=== PATIENT | female | born 1945 ===

== ENCOUNTER 2021-12-31 15:13 | Emergency (ER) | payer MEDICARE, SELFPAY ==
[2021-12-31 15:23] VITALS: BP 133/118; PULSE 92; TEMP 36.2; O2SAT 95
[2021-12-31 15:51] VITALS: RESP 18
--- NOTE | 2021-12-31 16:00 | DI.CT_ITS ---
Exam(s) CT HEAD WO EXAM: CT HEAD WO CLINICAL HISTORY: AMS, confussion, recent fall. TECHNIQUE: Imaging Protocol: Axial computed tomography images with coronal and sagittal reformatted images were created and reviewed COMPARISON: CR,XR XR CHEST 1V IN DI DEPT from 12/31/2021 FINDINGS: There are no skull fractures nor fluid in the visualized paranasal sinuses. There is no evidence of intracranial hemorrhage, mass effect, or shift of midline structures. There are no extra-axial fluid collections. The ventricles are not enlarged or shifted and there is no blo od within the ventricular system nor within the basal cisterns. There is a moderate amount of bilateral periventricular hypodensity consistent chronic small vessel d isease. Also involves the anterior limb of the right internal capsule. IMPRESSION: White matter changes consistent with chronic small vessel disease. If clinically indicated MRI with diffusion imaging can be performed to determine if there is an acute ischemic event. RADIATION DOSE DELIVERED: 656.6mGy.cm Total DLP DATA REPOSITORY: All CT scans at this facility are submitted to the National Radiology Data Registry (NRDR) Dose Index Registry (DIR) with the [employer] ([employer]). RADIATION OPTIMIZATION: All CT scans at this facility use at least one of these dose optimization te chniques: automated exposure control; mA and/or kV adjustment per patient size (includes targeted exa ms where dose is matched to clinical indication); or iterative reconstruction.
--- NOTE | 2021-12-31 16:00 | RT.EKG_ITS ---
APPROVED REPORT Exam: Resting ECG Reason for Exam: [facility] Patient Location: E HR:64 bpm ECG Measurements Heart Rate 64 AXIS FL 190 P 87 QRSd 96 QRS 36 QT 407 T 58 QTc 420 Conclusion Sinus rhythm...normal P axis, V-rate 60- 99 Probable left atrial enlargement...P >50mS, <-0.10mV V1 sinus rhythm, normal axis, normal intervals, non ischemic
--- NOTE | 2021-12-31 16:13 | DI.RAD_ITS ---
Exam(s) XR CHEST 1V IN DI DEPT EXAM: XR CHEST 1V IN DI DEPT CLINICAL HISTORY: AMS. TECHNIQUE: 2D digital imaging was performed. COMPARISON: No exams were available for comparison FINDINGS: Single AP portable view. Heart size is upper normal. The mediastinum is not widened. Bilateral hyperinflation noted. However, there are no infiltrates nor pleural effusions. No pulmona ry edema. There is a fracture of the posterolateral aspect of the right 7th rib noted, age indeterminate. IMPRESSION: No acute pulmonary findings on this single AP portable view of the chest.Hyperinflation. Right 7th rib fracture, age indeterminate. DATA REPOSITORY: RADIATION DOSE DELIVERED: All CT scans at this facility use at least one of these dose optimization techniques: automated exposure control; mA and/or kV adjustment per patient size (includes targeted e xams where dose is matched to clinical indication); or iterative reconstruction.
--- NOTE | 2021-12-31 16:23 | ED.GENADUL_ITS ---
Discharge Plan Disposition Patient Disposition: HOME Condition: Stable Discharge Details Chief Complaint: AMS/LOC Clinical Impression: Altered mental status Primary Care Provider: None,None ED Provider: Olegario Chaudhary Home Meds and New Rx's Prescriptions: No Action lorazepam 0.5 mg Tablet 0.5 mg PO QHS Discharge Instructions Instructions: Dementia (ED) Additional Instructions: Please return to the emergency department for any worsening confusion, or if you are unable to coordinate safe outpatient care/supervision. Medical Decision Making 76-year-old female denies past medical history brought in by from a state police for confusion, visiting for her son's graduation from local [employer], per son who gave collateral information to nurse over the phone he left from [employer] while he was giving a presentation before his graduation tomorrow, then he was able to find her, patient was found sitting in a car in [place], confused regarding situation. Patient denies headache nausea vomiting chest pain shortness of breath. Does endorse some shakiness in her hands for some time unclear duration, also endorses not taking her lorazepam over the past 2 weeks given misplacement of her medications, lives alone in [place], is alert to self and time, believes she is in [place] however she is also visiting from out of state this could be a reasonable misunderstanding however patient is globally confused regarding her trip down here to [place] as well as the circumstances leading to her coming to the emergency department today specifically what she was doing driving in [place] and how she got here, she is able to answer my questions regarding her life her past job and other details with apparent accuracy and appropriateness however she does have slightly strange affect and is confused regarding large details about today, endorses a fall within the last 1 to 2 weeks of unclear etiology, denies abuse at home, no external signs of trauma, she has full strength normal cranial nerves no ataxia, noted to be hypertensive diastolic which she says is abnormal for her. Consider progressive dementia versus intracranial hemorrhage versus normal pressure hydrocephalus versus benzodiazepine withdrawal versus metabolic derangement versus dehydration versus underlying progressive psychiatric condition versus unlikely infectious process however must consider UTI versus less likely intoxication versus atypical seizure disorder versus parkinsonian syndrome also also consider heat related illness given she was found confused in a car on a hot day however she has a normal temperature. Will assess labs, urine, CT head, chest x-ray, EKG, tox, pending results and reassessment will attempt to contact son for further collateral information and care plan consider admission for rehabilitation placement/neurology versus care plan with discharge home into custody of son this will depend on patient's mental status 19: 54 patient resting comfortably no acute distress labs and imaging largely unremarkable. Patient's mental status remains similar to presentation. Friend is at the bedside to give collateral information. Has noted a gradual decline in her memory over several weeks to months. History physical and results consistent with likely dementia. Counseled family at length regarding the need for a plan for further evaluation and her safety. Patient will be staying with her son for the coming days, son and daughter will coordinate care and neurology follow-up when patient returns to [place] she has an appointment for when she returns. Given strict return precautions for any worsening in her clinical status. HPI General Date/Time Provider Initiated Documentation: 12/31/21 15:17 . HPI Narrative: 76-year-old female denies past medical history brought in by [facility] police after being found confused in a car. Patient endorses is that she is down here visiting from [place] for her son's graduation but is unsure regarding the details of how she got down here or how she was brought to the emergency department. She states she lives alone feels comfortable at home. Is supposed to take lorazepam in the evenings to help with sleep however she missed the last 2 weeks of her medication as she has misplaced it at home. Does endorse having a change in her memory for some time and has been feeling a little shaky. Denies drug or alcohol abuse. Suicidal or homicidal thoughts, denies hallucinations. Does endorse a recent fall down several stairs at a friend's house however she is unclear how she fell or whether she passed out. 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 Related Data Home Medications Medication Instructions Recorded Confirmed lorazepam 0.5 mg tablet 0.5 mg PO QHS 12/31/21 Allergies Allergy/AdvReac Type Severity Reaction Status Date / Time No Known Allergies Allergy Unverified 12/31/21 15:29 General Stated Complaint: AMS/LOC GHAZAL: 3 Review of Systems Narrative: Review of Systems Constitutional: Confusion Eyes: negative ENT: negative Cardiovascular: negative Respiratory: negative Gastrointestinal: negative : negative Musculoskeletal: negative Skin: negative Neurologic: Confusion, shakiness, forgetfulness Psych: negative PFSH All Active Problems (Updated 12/31/21 @ 19:56 by Olegario Chaudhary MD) Altered mental status (Acute) Social History Smoking/Tobacco Use Status: Never Smoking risk assessment performed?: Yes Alcohol Intake: former Drug use: Never Substance use type: does not use Exam Narrative Exam Narrative: Physical Examination General: alert, awake, cooperative HEENT: normocephalic, atraumatic; PERRL, EOM intact, conjunctiva normal; no nasal discharge; moist mucous membranes, oral and pharyngeal mucosa normal, tolerating secretions Neck: supple, trachea midline; full ROM Chest: normal to inspection Respiratory: normal respiratory effort, speaking in full sentences, clear to auscultation, no wheezing, rales or rhonchi Cardiac: regular rate, regular rhythm, S1S2 intact, no murmurs rubs or gallops GI: abdomen soft, non-tender, non-distended; no palpable mass or hepatosplenomegaly Skin: no lesions, rashes or trauma appreciated Neuro: Alert and oriented to self, time, believes she has not [place], cranial nerves II through XII intact, 5/5 strength upper and lower extremities, no ataxia Extremities: No signs of trauma Psych: Slightly odd affect, tangential at times it redirectable; denies SI denies HI denies hallucinations Course Vital Signs Vital signs: Vital Signs Temperature 36.2 C L 12/31/21 15:23 Pulse 92 H 12/31/21 15:23 Blood Pressure 133/118 H 12/31/21 15:23 Pulse Oximetry 95 12/31/21 15:23 Temperature 36.2 C L 12/31/21 15:23 Temperature Source Temporal Artery Scan 12/31/21 15:23 Pulse 92 H 12/31/21 15:23 Respiratory Rate 18 12/31/21 15:51 Respiratory Effort Non-Labored 12/31/21 15:51 Respiratory Depth Normal 12/31/21 15:51 Respiratory Pattern Normal 12/31/21 15:51 Blood Pressure 133/118 H 12/31/21 15:23 Blood Pressure Position Sitting 12/31/21 15:23 Pulse Oximetry 95 12/31/21 15:23 Oxygen Delivery Method Room Air 12/31/21 15:23 Oxygen Flow Rate 0 12/31/21 15:23
[2021-12-31] MEDS: Normal Saline 1,000 ML 1000 ML IV (16:45)
[2021-12-31 16:52] LABS: Abs Immature Grans 0.02 10^3/uL (0.0-0.06); Absolute Basophil Count 0.03 10^3/uL (0.0-0.2); Absolute Eosinophil Count 0.04 10^3/uL (0.0-0.7); Absolute Lymphocyte Count 1.06 10^3/uL (1.2-3.4); Absolute Monocyte Count 0.62 10^3/uL (0.1-0.8); Absolute Neutrophil Count 7.61 10^3/uL (1.2-6.7); Basophils % 0.3; Eosinophils % 0.4; HCT 38.6 % (36.0-46.0); HGB 12.8 g/dL (11.2-15.7); Immature Grans % 0.2; Lymphocytes % 11.3; MCH 31.3 pg (27.0-33.0); MCHC 33.2 % (32.0-36.0); MCV 94 fL (80-95); MPV 9.1 fL (8.0-11.0); Monocytes % 6.6; Neutrophils % 81.2; Platelet Count 241 10^3/uL (130-400); RBC 4.09 10^6/uL (3.93-5.22); RDW-SD 45.4 fL; WBC 9.38 10^3/uL (4.4-10.8)
[2021-12-31 17:09] LABS: ALT 40 U/L (14-59); AST 35 U/L (15-37); Albumin 4.2 g/dL (3.4-5.0); Alkaline Phosphatase 64 U/L (46-116); Anion Gap 11.6 mmol/L (3-11); BUN 20 mg/dL (7-18); Bilirubin, Total 1.2 mg/dL (0.2-1.0); CO2 25.4 mmol/L (21.0-32.0); CREATININE 0.7 mg/dL (0.55-1.02); Chloride 104 mmol/L (98-107); Glucose 100 mg/dL (74-106); Potassium 3.6 mmol/L (3.5-5.1); Sodium 141 mmol/L (136-145); Total Protein 7.5 g/dL (6.4-8.2); Troponin I < 50 ng/L (<or=60)
[2021-12-31 17:10] LABS: Acetaminophen < 2 ug/mL (10-30)
[2021-12-31 17:14] LABS: Salicylate < 2.8 mg/dL (<2.8)
[2021-12-31 17:17] LABS: Magnesium 2.3 mg/dL (1.8-2.4); TSH (W/Ref FT4) 0.41 uIU/mL (0.36-3.74)
[2021-12-31 17:18] LABS: ETHANOL BLOOD < 3.0 mg/dL (<10)
[2021-12-31 17:34] VITALS: BP 109/55
--- NOTE | 2021-12-31 17:41 | DI.VRAD_ITS ---
PROCEDURE INFORMATION: Exam: CT Head Without Contrast Exam date and time: 12/31/2021 5:13 PM Age: 76 years old Clinical indication: Other: AMS, confusion recent fall TECHNIQUE: Imaging protocol: Computed tomography of the head without contrast. Other technique: STROKE PROTOCOL was implemented. COMPARISON: No relevant prior studies available. FINDINGS: Brain: No hemorrhage. No acute large territorial infarct. No mass effect. Cerebral ventricles: No ventriculomegaly. Paranasal sinuses: Visualized sinuses are unremarkable. No fluid levels. Mastoid air cells: Visualized mastoid air cells are well aerated. Bones/joints: No calvarial fracture. Soft tissues: Unremarkable. IMPRESSION: No acute intracranial abnormality. ASSESSMENT: ASPECTS ([place] Stroke Program Early CT Score) is 10. Dictated and Authenticated by: Anna Elizondo MD. Ordering:DYLAN Melvin MD
--- NOTE | 2021-12-31 17:45 | DI.VRAD_ITS ---
PROCEDURE INFORMATION: Exam: XR Chest Exam date and time: 12/31/2021 5:21 PM Age: 76 years old Clinical indication: Other: AMS TECHNIQUE: Imaging protocol: XR of the chest. Views: 1 view. COMPARISON: No relevant prior studies available. FINDINGS: Lungs: Hyperexpanded lung ortiz consistent with COPD Pleural spaces: Unremarkable. No pleural effusion. No pneumothorax. Heart/Mediastinum: Unremarkable. No cardiomegaly. Bones/joints: Displaced fracture of the right posterior 7th rib of unknown age IMPRESSION: Hyperexpanded lung ortiz consistent with COPD Displaced fracture of the right posterior 7th rib of unknown age Dictated and Authenticated by: Albert Mcdonald MD. Ordering:DYLAN Melvin MD
[2021-12-31 18:21] LABS: Bilirubin Negative (Negative); Blood Trace-intact (Negative); Clarity Clear (Clear); Glucose Negative (Negative); Ketones Trace mg/dL (Negative); Leukocyte Esterase Trace (Negative); Nitrite Negative (Negative); Urobilinogen 0.2 EU/dL (Up TO 0.2); pH 6.5 (5-8)
[2021-12-31 18:32] LABS: *AMPHETAMINES SCREEN URINE Negative (Negative); *BARBITURATES SCREEN URINE Negative (Negative); *BENZODIAZEPINES SCREEN URINE Negative (Negative); Cannabinoids THC Negative (Negative); Cocaine Screen,Urine Negative (Negative); METHADONE URINE SCREEN Negative (Negative); OPIATES URINE SCREEN Negative (Negative)
[2021-12-31 18:35] LABS: Bacteria Negative HPF (Negative); C & S Indicated? Yes; Crystals Negative HPF (Negative); Epithelial Cells Negative HPF (Negative); Mucus Negative (Negative); Other Cells Few Renal (Negative); RBC Negative HPF (0-2)
[2021-12-31 18:36] LABS: Tricyclic Antidepressants Negative (Negative)
== END 2021-12-31 19:59 | disposition home or self-care (01) ==
PROVIDERS: Emergency Provider Emergency Medicine
DX: R41.82 Altered mental status, unspecified (principal); Z79.899 Other long term (current) drug therapy; R41.0 Disorientation, unspecified
CPT/HCPCS: 36415; 36416; 80053; 80307; 82962; 93005; 96360; 99285; 70450; 71045; 80320; 80329; 81003; 81015; 83735; 84443; 84484; 85025; 87086; 93010; 99284